=== PATIENT | female | born 1990 | race Two or more races ===

== ENCOUNTER 2020-06-18 16:00 | Emergency (ER) | payer MEDICAID ==
[~2020-06-18] VITALS: Ht 165.1 cm; Wt 72.6 kg
--- NOTE | 2020-06-18 17:00 | NUR ---
pt arrives to ER with complaints of breast pain and tenderness x 1 day. pt states recent initation of breast feeding. breast examination wnl with tenderness. pt [id number]
--- NOTE | 2020-06-18 17:05 | Emergency Room Report ---
History of Present Illness General Chief Complaint: General Complaint Source: Patient Present Illness HPI 30-year-old female presents to the emergency department complaining of 9 out of 10 severity pain, tenderness, swelling and erythema to the left breast since yesterday. Patient is also reporting experiencing chills at home. She denies reported fevers. She reports she is currently breast-feeding. She denies discharge she reports she is still able to express milk from the affected breast. No other aggravating or relieving factors. Allergies: Coded Allergies: No Known Allergies (Unverified , 06/18/20) COVID-19 Screening Contact w/high risk pt: No Experienced COVID-19 symptoms?: No COVID-19 Testing performed TEMPORARY DATA ENTRY CLERK: No Patient History Now: No Nursing Documentation-[facility] Past Medical History: No Stated History Physical Exam Vital Signs Date Time Temp Pulse Resp B/P (MAP) Pulse Ox O2 Delivery O2 Flow Rate FiO2 06/18/20 16:34 99.0 92 18 130/80 (97) 98 Room Air Medical Decision Making Diagnostic Impression: Primary Impression: Acute mastitis of left breast ER Course 30-year-old female presents to the emergency department complaining of 9 out of 10 severity pain, tenderness, swelling and erythema to the left breast since yesterday. Patient is also reporting experiencing chills at home. She denies reported fevers. She reports she is currently breast-feeding. She denies disch arge she reports she is still able to express milk from the affected breast. No other aggravating or relieving factors. Ddx considered but are not limited to cellulitis, abscess, mastitis, shingles, malignancy just to name a few. Vital signs: are WNL, pt. is afebrile H&PE are most consistent with left breast mastitis without evidence of abscess on physical exam. ORDERS: none required at this time, the diagnosis is clinical ED INTERVENTIONS: None required at this time. DISCHARGE: At this time pt. is stable for d/c to home. Will provide printed patient care instructions, and any necessary prescriptions. Care plan and follow up instructions have been discussed with the patient prior to discharge. Last Vital Signs Date Time Temp Pulse Resp B/P (MAP) Pulse Ox O2 Delivery O2 Flow Rate FiO2 06/18/20 16:34 99.0 92 18 130/80 (97) 98 Room Air Disposition: HOME, SELF-CARE Condition: Stable Referrals: [facility],REFERRING (PCP) Patient Instructions: and Mastitis Additional Instructions: Take medications as directed. Follow up with a OBGYN within 3 days, even if your symptoms have resolved. Return sooner to ED if new symptoms occur, or current symptoms become worse. - Please note that this Emergency Department Report was dictated using [employer] captain technology software, occasionally this can lead to erroneous entry secondary to interpretation by the dictation equipment. Ai Gupta Jun 18, 2020 17:05
[2020-06-18] MEDS ORDERED: DICLOXACILLIN500 M1 ORAL (17:15)
[2020-06-18] MEDS ORDERED: IBUPROFEN600 M1 ORAL (17:15)
[2020-06-18 18:32] VITALS: BP 112/75
== END 2020-06-18 18:43 | disposition home or self-care (01) ==
LOC: EMR 16:58
DX: N61.0 Mastitis without abscess (principal)
CPT/HCPCS: 99281